=== PATIENT | female | born 1955 | race Caucasian/White ===

== ENCOUNTER → 2018-03-11 | Day surgery (SDC) | payer OTHER ==
[~2018-03-11] VITALS: Ht 172.7 cm; Wt 80.7 kg
--- NOTE | 2018-03-12 20:36 | RADIOLOGY REPORT ---
EXAMINATION: CR ABDOMEN/INTRAOPERATIVE FLUOROSCOPY CLINICAL INDICATION: Ureteroscopy left side. COMPARISON: KUB dated 03/09/2018. TECHNIQUE/FINDINGS: Fluoroscopic equipment was dedicated to the operating room for the performance of an intraoperative procedure. Several (4) spot films were acquired and are archived in PACS. Please refer to operative notes for procedural detail. FLUOROSCOPY TIME: 1.0 minutes. IMPRESSION: Administrative dictation for intraoperative fluoroscopy and image archiving in PACS. Please refer to operative notes for details.
--- NOTE | 2018-03-24 09:08 | Operative Report ---
Operative/Inv Procedure Report Surgery Date: 03/11/18 Name of Procedure: cystoscopy: left stent insertion Pre-Operative Diagnosis: left hydro. with renal stone and colic Post-Operative Diagnosis: same Estimated Blood Loss: scant Surgeon/Insurance Auditor: Dirk Garnett MD Anesthesia: moderate sedation Complications: none Operative/Procedure Note Note: The patient was taken to the operating room and placed on the OR table in supine position. With the patient awake, timeout was performed in order to confirm; correct patient, correct procedure, as well as correct laterality, and other pertinent angelo-operative information. After adequate anesthesia and antibiotics , the patient was then placed lithotomy stirrups, draped and prepped in the usual surgical fashion. A 22 [place] cystoscope sheath with 30 angle lens was inserted into the bladder without difficulty. Upon entering the bladder, the bladder was noted to be free of tumor free of stone. Both orifices were in their orthotopic position. The left ureter orifice was intubated with an 8fr cone-tip catheter and a retrograde pyelogram with fluoroscopy was performed. A small distal ureter filling defect (c/w stone), with proximal hydronephrosis, was visualized. The cone-tipped catheter was removed, followed by insertion of a 0.035 Glidewire, which was advanced into the left renal pelvis without difficulty, with correct placement confirmed on fluoroscopy. Leaving the Glidewire in place, an 8 Barbadian ureteral dilator was reloaded over the Glidewire. The dilator was advanced slowly, and easily, with fluoroscopic visualization. The small ureteral stone was visualized, and the 0 tip basket was deployed through the ureteroscope. The ureteroscope along with the basket and stone were extracted without difficulty. The 22 Barb[place] cystoscope sheath with a 30 angle lens was then reinserted into the bladder, with the Glidewire inserted into the left ureter orifice and advanced into the left renal pelvis with fluoroscopic visualization. A 6 x 22 Bard ureteral stent was railroaded over the Glidewire. With the proximal coil advanced into the left renal pelvis, confirmed on fluoroscopy, and the distal coil seen in the bladder cystoscopically, the Glidewire was removed and the stent remained in proper place. The bladder was then drained, and the cystoscope was removed. The patient tolerated the procedure well was then taken to the recovery room in satisfactory condition. The patient is to follow up in 1-2 weeks for stent removal. Discharge Disposition: PACU CC: Dirk Garnett MD
== END ==
LOC: STS 15:36 → EDSTATUS 16:30
DX: N13.2 Hydronephrosis with renal and ureteral calculous obstruction (principal); N39.41 Urge incontinence; I10 Essential (primary) hypertension; K21.9 Gastro-esophageal reflux disease without esophagitis; Z86.14 Personal history of Methicillin resistant Staphylococcus aureus infection
CPT/HCPCS: 74018; 93005; 93010; C2617; J0131; J2250; J2405